=== PATIENT | female | born 1980 | race Caucasian/White ===

== ENCOUNTER → 2025-01-10 | Outpatient (CLI) | payer OTHER, SELFPAY ==
--- NOTE | 2025-01-10 12:41 | XR_ITS ---
Examination:Left hip AP, lateral, AP pelvis 3 views Technique: Hip AP lateral, AP pelvis, 3 views Exam date and time:January 20, 2025 1303 hours INDICATIONS: Left hip pain beginning 6 months ago. FINDINGS: No left hip fracture or dislocation Mild bilateral hip osteoarthritis Bones of the pelvis intact IMPRESSION: Mild bilateral hip osteoarthritis.
== END | disposition home or self-care (01) ==
LOC: CDIM 12:21
PROVIDERS: PCP Family Medicine; Referring Provider Family Medicine; Visit Provider Family Medicine
DX: M16.0 Bilateral primary osteoarthritis of hip (principal)
CPT/HCPCS: 73502